=== PATIENT | male | born 1965 | race African-American/Black ===

== ENCOUNTER 2018-04-09 17:18 | Inpatient (IN) | payer MEDICARE, OTHER | END 2018-04-11 19:50 | disposition home or self-care (01) | LOC: TELE 04-10 06:43 → TELE-CENTR 04-10 20:30 → ER 17:18 | DX: I16.0 Hypertensive urgency (principal); G82.20 Paraplegia, unspecified; G35 Multiple sclerosis; G89.4 Chronic pain syndrome; M54.9 Dorsalgia, unspecified ==

== ENCOUNTER 2018-04-17 01:10 | Inpatient (IN) | payer MEDICARE, OTHER ==
[~2018-04-17] VITALS: Ht 182.9 cm; Wt 109.3 kg
[~2018-04-17 01:10] MED LIST: CAR3125T PO; CLO01T PO; HYDR25TA4 PO; LOSA-49 PO; METO-159 PO
[2018-04-17 04:02] LABS: Urine Bacteria NONE SEEN /hpf (None Seen); Urine Blood Negative /uL (Negative); Urine Specific Gravity 1.005 (1.001-1.035); Urine WBC 2 /hpf (0 - 3)
[2018-04-17] MEDS ORDERED: ASPirin 81 mg TAB PO ONE ×2 (08:30→10:45)
[2018-04-17] MEDS ORDERED: MORPHINE SULFATE 4 MG/ML SYR/VIAL IV ONE (08:30)
[2018-04-17] MEDS ORDERED: ONDANSETRON HCL 4 MG/2 ML VIAL IV ONE (08:30)
[2018-04-17 08:35] LABS: Basophils # (auto) 0.1 uL; Eosinophils # (auto) 0 uL; Hemoglobin 14.1 g/dL (13.5-17.5); Monocytes # (auto) 0.8 uL; Neutrophils # (auto) 6.2 uL; White Blood Cell 9.1 10^3/uL (4.4-10.8)
[2018-04-17 08:37] LABS: Basophils % (auto) 0.8 % (0.0-2.0); Eosinophils % (auto) 0.3 % (0.0-7.0); Hematocrit 43.5 % (41.0-53.0); Lymphocytes % (auto) 22.1 % (10.0-50.0); Mean Corpuscular Hemoglobin 26.8 pg (28.0-32.0); Mean Corpuscular Hgb Conc. 32.4 g/dL (32.0-36.0); Mean Corpuscular Volume 82.8 fL (80.0-100.0); Monocytes % (auto) 8.4 % (0.0-12.0); Neutrophils % (auto) 68.4 % (37.0-80.0); Platelet Count (auto) 332 10^3/uL (140-450); Red Blood Cells 5.26 10^6/uL (4.5-5.90); Red Cell Distribution Width 18.7 % (11.8-14.3)
[2018-04-17 08:51] LABS: Albumin 4.2 g/dL (3.4-5.0); Anion Gap 8 (5-15); Blood Urea Nitrogen 17 mg/dL (7-18); Calcium 9.2 mg/dL (8.5-10.1); Carbon Dioxide 25 mmol/L (21-32); Chloride 109 mmol/L (98-107); Glucose 107 mg/dL (74-106); Potassium 3.6 mmol/L (3.5-5.1); Sodium 142 mmol/L (136-145)
[2018-04-17 08:57] LABS: Alanine Aminotransferase 32 U/L (16-61); Alkaline Phosphatase 160 U/L (45-117); Aspartate Aminotransferase 23 U/L (15-37); BUN/Creatinine Ratio 16.2; Bilirubin, Total 0.4 mg/dL (0.2-1.0); GFR African American 94 mL/min; GFR Non-African American 78 mL/min; Total Protein 7.4 g/dL (6.4-8.2)
[2018-04-17] MEDS ORDERED: MORPHINE SULFATE 4 MG/ML SYR/VIAL IV PRN ×2 (10:15)
[2018-04-17] MEDS ORDERED: ACETAMINOPHEN 500 MG TAB PO PRN (10:15)
[2018-04-17] MEDS ORDERED: NITROGLYCERIN 0.4 MG SL TAB SL PRN (10:15)
[2018-04-17] MEDS ORDERED: HCTZ 25 MG TAB PO ONE (10:45)
[2018-04-17] MEDS ORDERED: LOSARTAN POTASSIUM 50 MG TAB PO ONE (10:45)
[2018-04-17] MEDS ORDERED: METOPROLOL TARTRATE 50 MG TAB PO ONE (10:45)
[2018-04-17 11:07] LABS: Alcohol, Urine < 3.0 mg/dL (0-5); Amphetamine Screen, Urine NEGATIVE (NEGATIVE); Barbiturate Scree,Urine NEGATIVE (NEGATIVE); Benzodiazephine Screen, Urine NEGATIVE (NEGATIVE); Cannabinoid Screen, Urine NEGATIVE (NEGATIVE); Cocaine Screen, Urine NEGATIVE (NEGATIVE); Opiate Scree,Urine NEGATIVE (NEGATIVE); Phencyclidine Screen, Urine NEGATIVE (NEGATIVE)
[2018-04-17] MEDS ORDERED: diphenhdrAMINE HCL 50 MG/1 ML VL IV ONE (12:15)
[2018-04-17] MEDS: SODIUM CHLORIDE 0.9% 1,000 ML IV SCH (12:24)
[2018-04-17] MEDS: HYDROmorphone HCL 2 MG/ML VL IV PRN ×3 (13:33→22:51)
[2018-04-17] MEDS: cloNIDine HCL 0.1 MG TAB PO SCH ×2 (13:50→21:17)
[2018-04-17] MEDS ORDERED: IOHEXOL 350 MG/ML 100ML IJ ONE (13:57)
[2018-04-17] MEDS: LORazepam 0.5 MG TAB PO PRN (16:03)
[2018-04-17] MEDS: HYDROcodone-ACET 5/325MG TAB PO PRN (16:03)
[2018-04-17] MEDS ORDERED: ENOXAPARIN SOD 100 MG/1 ML SYRINGE SC ONE (17:30)
[2018-04-17 18:00] VITALS: BP 156/108
--- NOTE | 2018-04-17 19:30 | NUR ---
Opening Shift Note Assumed care of patient, awake and alert. No S/S of distress/SOB or pain. Bed in lowest locked position, side rails up x2, call light within reach. Instructed on POC and to call for assist PRN, will continue to monitor for changes Q1hr and PRN.
[2018-04-17] MEDS: ATORVASTATIN 20 MG TAB PO SCH (21:16)
[2018-04-17] MEDS: METOPROLOL TARTRATE 50 MG TAB PO SCH (21:17)
--- NOTE | 2018-04-17 21:17 | NUR ---
Benadryl Patient reporting itching, requesting Benadryl. Benadryl 25mg offered as ordered, patient refusing to take oral medication, requesting IV Benadryl, will page cogeneration technician hospitalist.
[2018-04-17 22:00] VITALS: BP 161/105
--- NOTE | 2018-04-17 22:00 | NUR ---
Hospitalist Paged finished cloth examiner hospitalist paged regarding patient's request to switch from PO Benadryl to IV Benadryl, awaiting call back at this time.
--- NOTE | 2018-04-17 22:07 | NUR ---
Hospitalist Returned Page Darshan Osborne DOCENT COORDINATOR returned page at this time. Per DOCENT COORDINATOR, "we will keep Benadryl PO." RN verbalized understanding, will administer as ordered and continue to monitor patient.
[2018-04-17] MEDS: diphenhdrAMINE HCL 25 MG CAP PO PRN (22:43)
[2018-04-18] MEDS: TEMAZEPAM 15 MG CAP PO PRN ×2 (00:33→23:29)
[2018-04-18] MEDS: HYDROcodone-ACET 5/325MG TAB PO PRN (00:33)
[2018-04-18] MEDS: SODIUM CHLORIDE 0.9% 1,000 ML IV SCH (02:25)
[2018-04-18] MEDS: HYDROmorphone HCL 2 MG/ML VL IV PRN ×5 (03:11→21:08)
[2018-04-18] MEDS: cloNIDine HCL 0.1 MG TAB PO SCH ×4 (06:00→23:37)
--- NOTE | 2018-04-18 07:40 | NUR ---
End of Shift Endorsed care to dayshift RN. Patient shows no signs of distress at this time. Bed in lowest locked position, side rails up x2, and call light within reach.
--- NOTE | 2018-04-18 07:50 | NUR ---
PT RESTING IN BED, PT REPORTS BACK PAIN 8/10 FROM PREVIOUS SURGERY. BED IN LOWEST LOCKED POSITION AND SIDE RAILS UP X2. PT ENCOURAGED TO USE CALL LIGHT PRN, WILL CONTINUE TO MONITOR.
[2018-04-18 08:45] VITALS: BP 172/113
[2018-04-18] MEDS: diphenhdrAMINE HCL 25 MG CAP PO PRN (08:50)
[2018-04-18] MEDS: HCTZ 25 MG TAB PO SCH (09:09)
[2018-04-18] MEDS: METOPROLOL TARTRATE 50 MG TAB PO SCH ×2 (09:09→21:08)
[2018-04-18] MEDS: PANTOPRAZOLE 40 MG TAB PO SCH (09:10)
[2018-04-18] MEDS: LOSARTAN POTASSIUM 50 MG TAB PO SCH (09:11)
[2018-04-18] MEDS: NITROGLYCERIN 0.2MG/HR TOPICAL PATCH TD SCH (09:14)
[2018-04-18] MEDS: ENOXAPARIN SOD 100 MG/1 ML SYRINGE SC SCH ×2 (09:14→21:07)
--- NOTE | 2018-04-18 09:23 | NUR ---
METOPROLOL HELD, PT HEART RATE 58.
[2018-04-18] MEDS ORDERED: ASPirin 81 mg TAB PO SCH (10:00)
[2018-04-18] MEDS ORDERED: ENOXAPARIN SOD 40 MG/0.4 ML SYRINGE SC SCH (10:00)
--- NOTE | 2018-04-18 10:01 | NUR ---
SPIRAL RUNNER REPORTS PATIENT WANTS MORE PAIN MEDICATION. PRN DILAUDID ALREADY GIVEN. PT REFUSED BLOOD DRAW TWICE THIS MORNING. WILL CONTINUE TO MONITOR.
--- NOTE | 2018-04-18 10:37 | NUR ---
SPOKE WITH PATENT, PT REPORTS 8/10 BACK PAIN, PRN NORCO OFFERED TO PATIENT. PT REFUSED. PT REQUESTS HIGHER DOSE OF DILAUDID. WILL ASK .
[2018-04-18] MEDS ORDERED: cefTRIAXone 1GM/50ML D5W 50 ML IV ONE (12:15)
[2018-04-18] MEDS ORDERED: AZITHROMYCIN 500MG/ 250ML 250 ML IV ONE (12:15)
--- NOTE | 2018-04-18 12:31 | NUR ---
DR SULLIVAN SAW PATIENT AND DISCUSSED POC. NEW ORDERS: PO BENADRYL CHANGED TO IV. DIAUDID CHANGED FROM 0.5 MG TO 1 MG. DC B[place]. ANTIBIOTICS STARTED, AND CLONIDINE DOSE CHANGED. PT UPDATED AND VERBALIZED UNDERSTANDING. WILL CONTINUE TO MONITOR. Addendum: 04/18/18 at 1336 by CAIN WILSON RN informed pt bp 172/113 and new orders to dc fluids.
[2018-04-18 13:00] VITALS: BP 149/104
[2018-04-18 14:47] LABS: Cholesterol 196 mg/dL (< 200); Triglycerides 234 mg/dL (< 150)
[2018-04-18 14:48] LABS: HDL Cholesterol 44 mg/dL (40-59); LDL Cholesterol 125 mg/dL (< 100)
[2018-04-18] MEDS: diphenhdrAMINE HCL 50 MG/1 ML VL IV PRN ×2 (15:56→21:38)
[2018-04-18] MEDS: PROMETHAZINE HCL 25 MG/ML 1ML IV PRN ×2 (15:56→21:08)
[2018-04-18 17:00] VITALS: BP 137/87
--- NOTE | 2018-04-18 19:20 | NUR ---
Opening Shift Note Assumed care of patient, awake and alert x 4. No S/S of distress/SOB. Bed is in lowest position and locked. Call light within reach. Board updated. Tele box number matches monitor and leads are in correct placement. Wheelchair at bedside. Instructed on POC and to call for assist PRN, will continue to monitor for changes Q1hr and PRN.
[2018-04-18] MEDS: ATORVASTATIN 20 MG TAB PO SCH (21:08)
[2018-04-19] MEDS: PROMETHAZINE HCL 25 MG/ML 1ML IV PRN ×4 (01:14→14:11)
[2018-04-19] MEDS: HYDROmorphone HCL 2 MG/ML VL IV PRN ×6 (01:15→22:13)
[2018-04-19] MEDS: diphenhdrAMINE HCL 50 MG/1 ML VL IV PRN ×3 (03:45→18:24)
[2018-04-19] MEDS: HYDROcodone-ACET 5/325MG TAB PO PRN ×3 (03:46→21:13)
[2018-04-19 05:00] VITALS: BP 112/68
[2018-04-19] MEDS: cloNIDine HCL 0.1 MG TAB PO SCH ×3 (05:51→18:23)
[2018-04-19 09:00] VITALS: BP 117/73
[2018-04-19] MEDS: LOSARTAN POTASSIUM 50 MG TAB PO SCH (10:06)
[2018-04-19] MEDS: PANTOPRAZOLE 40 MG TAB PO SCH (10:07)
[2018-04-19] MEDS: METOPROLOL TARTRATE 50 MG TAB PO SCH ×2 (10:07→22:13)
[2018-04-19] MEDS: HCTZ 25 MG TAB PO SCH (10:07)
[2018-04-19] MEDS: AZITHROMYCIN 500MG/ 250ML 250 ML IV SCH (10:08)
[2018-04-19] MEDS: cefTRIAXone 1GM/50ML D5W 50 ML IV SCH (10:08)
[2018-04-19] MEDS: NITROGLYCERIN 0.2MG/HR TOPICAL PATCH TD SCH (10:08)
[2018-04-19 13:00] VITALS: BP 143/96
[2018-04-19] MEDS: LORazepam 0.5 MG TAB PO PRN (14:12)
--- NOTE | 2018-04-19 15:05 | NUR ---
Opening Note Assumed care of patient. Patient is awake, alert and oriented x4. No signs or symptoms of distress noted at this time. Reviewed plan of care with patient, patient verbalized understanding. Bed in low and locked position, call light within reach. Will continue to monitor Q1 hour and PRN.
[2018-04-19 17:00] VITALS: BP 122/78
[2018-04-19 22:00] VITALS: BP 120/81
[2018-04-19] MEDS: ATORVASTATIN 20 MG TAB PO SCH (22:13)
[2018-04-19] MEDS: TEMAZEPAM 15 MG CAP PO PRN (22:50)
[2018-04-20] MEDS: cloNIDine HCL 0.1 MG TAB PO SCH ×4 (00:26→18:00)
[2018-04-20] MEDS: HYDROmorphone HCL 2 MG/ML VL IV PRN ×5 (02:30→19:35)
[2018-04-20] MEDS: diphenhdrAMINE HCL 50 MG/1 ML VL IV PRN ×4 (02:31→21:20)
[2018-04-20 05:16] VITALS: BP 114/63
--- NOTE | 2018-04-20 05:34 | NUR ---
Patient refusing morning lab draw. Educated patient on importance of labs prior to his heart cath procedure today. Patient continues to refuse. Will continue to monitor Q1 hour and PRN.
--- NOTE | 2018-04-20 07:00 | NUR ---
Patient allowed labs to be drawn
--- NOTE | 2018-04-20 07:32 | NUR ---
Closing Note Report given to day shift RN. Patient is awake, alert and oriented x4. No signs or symptoms of distress noted at this time. at bedside.
[2018-04-20 07:34] LABS: INR 0.93 (0.9-1.15); Partial Thromboplastin Time 20.8 sec (23.78-33.04)
--- NOTE | 2018-04-20 07:35 | NUR ---
Opening Shift Note Received report from Summer RN. Assumed care of patient, awake and alert. No S/S of distress/SOB. Reported generalized pain. Emphasized NPO due to LHC today and patient is aware of it. Noted own wheelchair at bedside. Instructed on POC and to call for assist PRN, will continue to monitor for changes Q1hr and PRN.
[2018-04-20 08:00] VITALS: BP 118/77
[2018-04-20 08:11] LABS: Basophils # (auto) 0 uL; Basophils % (auto) 0.4 % (0.0-2.0); Hemoglobin 12.6 g/dL (13.5-17.5); Neutrophils # (auto) 2.9 uL; Nucleated Red Blood Cells % 0.1 %
[2018-04-20 08:13] LABS: Eosinophils # (auto) 0.2 uL; Eosinophils % (auto) 2.6 % (0.0-7.0); Hematocrit 39.2 % (41.0-53.0); Lymphocytes # (auto) 2.3 uL; Lymphocytes % (auto) 38.6 % (10.0-50.0); Mean Corpuscular Hemoglobin 26.3 pg (28.0-32.0); Mean Corpuscular Hgb Conc. 32.2 g/dL (32.0-36.0); Mean Corpuscular Volume 81.8 fL (80.0-100.0); Monocytes # (auto) 0.7 uL; Neutrophils % (auto) 47.4 % (37.0-80.0); Platelet Count (auto) 245 10^3/uL (140-450); Red Blood Cells 4.79 10^6/uL (4.5-5.90); Red Cell Distribution Width 18.4 % (11.8-14.3)
[2018-04-20 08:22] LABS: Albumin 3.5 g/dL (3.4-5.0); Calcium 8.6 mg/dL (8.5-10.1); Potassium 3.9 mmol/L (3.5-5.1)
[2018-04-20 08:25] LABS: BUN/Creatinine Ratio 16.2; Bilirubin, Total 0.3 mg/dL (0.2-1.0); Total Protein 6.2 g/dL (6.4-8.2)
[2018-04-20 08:30] VITALS: BP 118/77
--- NOTE | 2018-04-20 08:35 | NUR ---
Dr. Alex Riley at bedside.
[2018-04-20] MEDS: HYDROcodone-ACET 5/325MG TAB PO PRN ×2 (09:06→21:20)
[2018-04-20] MEDS: METOPROLOL TARTRATE 50 MG TAB PO SCH ×2 (09:19→22:40)
[2018-04-20] MEDS: HCTZ 25 MG TAB PO SCH (09:21)
[2018-04-20] MEDS: LOSARTAN POTASSIUM 50 MG TAB PO SCH (09:21)
[2018-04-20] MEDS: cefTRIAXone 1GM/50ML D5W 50 ML IV SCH (09:22)
[2018-04-20] MEDS: ENOXAPARIN SOD 100 MG/1 ML SYRINGE SC SCH ×2 (09:22→22:41)
[2018-04-20] MEDS: PANTOPRAZOLE 40 MG TAB PO SCH (09:22)
[2018-04-20] MEDS: NITROGLYCERIN 0.2MG/HR TOPICAL PATCH TD SCH (09:23)
--- NOTE | 2018-04-20 10:00 | NUR ---
GAVE REPORT TO TEX TOLEDO TO CONTINUE PATIENT'S CARE.
--- NOTE | 2018-04-20 10:05 | NUR ---
REPORT RECEIVED Patient awake and alert sitting up in bed with family at bedside. Patient is on room air with even and unlabored respirations. No S/S of distress/SOB at this time. Will continue to monitor changes q1hr and PRN.
[2018-04-20] MEDS: AZITHROMYCIN 500MG/ 250ML 250 ML IV SCH (10:47)
--- NOTE | 2018-04-20 11:25 | NUR ---
IV insertion IV access obtained, via clean sterile technique by inserting [22] gauge catheter at [right shoulder] after [1] attempt(s). IV secured properly. No trauma to site. Patient tolerated well.
--- NOTE | 2018-04-20 11:45 | NUR ---
PATIENT TRANSPORTED OFF UNIT TO INDUSTRIAL MACHINE ASSEMBLER VIA BED. PATIENT ALERT AND AWAKE WITH EVEN AND UNLABORED RESPIRATIONS. NO S/S OF DISTRESS/SOB AT TIME OF TRANSFER. HAND OFF REPORT GIVEN TO INDUSTRIAL MACHINE ASSEMBLER.
--- NOTE | 2018-04-20 11:54 | NUR ---
Nutrition Assessment Notes please see attached link for complete assessment Est. Needs based on ABW (95 kg): 9286-1643 kcal (23-25 kcal/kgBW), 95-104 gms pro (1.0-1.1 gms/kgBW). Will continue to monitor pertinent labs and reassess nutrient need prn Addendum: 04/20/18 at [address] Amended: Links added.
[2018-04-20] MEDS ORDERED: LIDOCAINE 2%HCL (LOCAL ANESTH.) INJ 20ML MDV ONE (11:55)
[2018-04-20] MEDS ORDERED: IOHEXOL 350 MG/ML 100ML IJ ONE (11:55)
[2018-04-20] MEDS ORDERED: MIDAZOLAM HCL 1MG/1ML-2 ML VIAL ONE (12:41)
[2018-04-20] MEDS ORDERED: fentaNYL CITRATE 100 MCG/2 ML VL ONE ×2 (12:41→13:10)
[2018-04-20] MEDS ORDERED: ANGIOMAX 250 MG VIAL IV ONE (12:41)
[2018-04-20] MEDS ORDERED: SODIUM CHL 0.9% 0 ML ONE (12:41)
[2018-04-20] MEDS ORDERED: VERAPAMIL 2.5MG/ML INJ 2ML VIAL IV ONE (12:45)
[2018-04-20 13:00] VITALS: BP 132/63
--- NOTE | 2018-04-20 13:40 | NUR ---
PATIENT RETURNED FROM RETURNED CASE INSPECTOR PATIENT RETURNED FROM RETURNED CASE INSPECTOR. PATIENT HAS TR BAND TO RIGHT WRIST. INCISION LOOKS CLEAN, DRY AND INTACT. PATIENT ALERT AND AWAKE WITH EVEN AND UNLABORED RESPIRATIONS. WILL MONITOR INCISION SITE AND REMOVE AIR PER PROTOCOL. WILL CONTINUE TO MONITOR Q1H AND PRN.
--- NOTE | 2018-04-20 14:15 | NUR ---
AIR REMOVED FROM TR BAND 2 ML'S OF AIR REMOVED FROM TR BAND TO RIGHT WRIST PER PROTOCOL. NO BLEEDING NOTED FROM SITE. WILL CONTINUE TO MONITOR.
--- NOTE | 2018-04-20 14:40 | NUR ---
AIR REMOVED FROM TR BAND ANOTHER 2 ML'S OF AIR REMOVED FROM TR BAND. NO BLEEDING NOTED FROM SITE. PATIENT TOLERATED WELL. WILL CONTINUE TO MONITOR.
--- NOTE | 2018-04-20 15:05 | NUR ---
AIR REMOVED FROM TR BAND 2 ML'S OF AIR REMOVED FROM TR BAND TO RIGHT WRIST PER PROTOCOL. NO BLEEDING NOTED FROM SITE. PATIENT TOLERATED WELL.WILL CONTINUE TO MONITOR.
--- NOTE | 2018-04-20 16:00 | NUR ---
AIR REMOVED FROM TR BAND ANOTHER 2 ML'S OF AIR REMOVED FROM TR BAND TO RIGHT WRIST PER PROTOCOL. NO BLEEDING NOTED FROM SITE. PATIENT TOLERATED WELL.WILL CONTINUE TO MONITOR.
--- NOTE | 2018-04-20 16:30 | NUR ---
AIR REMOVED FROM TR BAND LAST 2 ML'S OF AIR REMOVED FROM TR BAND TO RIGHT WRIST PER PROTOCOL. NO BLEEDING NOTED FROM SITE. PATIENT TOLERATED WELL. WILL REMOVE TR BAND PER PROTOCOL. WILL CONTINUE TO MONITOR Q1H AND PRN.
[2018-04-20 16:53] VITALS: BP 103/58
--- NOTE | 2018-04-20 17:00 | NUR ---
TR BAND REMOVED TR BAND REMOVED PER PROTOCOL. NO BLEEDING, REDNESS, OR EDEMA TO SITE NOTED. SITE COVERED WITH GAUZE AND TEGADERM. WILL CONTINUE TO MONITOR Q1H AND PRN.
--- NOTE | 2018-04-20 17:25 | NUR ---
Closing Note Patient laying in bed quietly, alert and orientated. No S/S of distress/SOB noted at this time. Report given to TAYLOR Ro RN. Care endorsed.
[2018-04-20] MEDS: LORazepam 0.5 MG TAB PO PRN (17:32)
--- NOTE | 2018-04-20 19:30 | NUR ---
Opening Shift Note Assumed care of patient, awake and alert. No S/S of distress/SOB or pain. Instructed on POC and to call for assist PRN, will continue to monitor for changes Q1hr and PRN.
[2018-04-20 22:00] VITALS: BP 119/77
[2018-04-20] MEDS: ATORVASTATIN 20 MG TAB PO SCH (22:40)
[2018-04-21] MEDS: HYDROmorphone HCL 2 MG/ML VL IV PRN ×6 (00:19→21:37)
[2018-04-21] MEDS: TEMAZEPAM 15 MG CAP PO PRN ×2 (00:27→23:40)
[2018-04-21] MEDS: diphenhdrAMINE HCL 50 MG/1 ML VL IV PRN ×4 (03:00→21:37)
[2018-04-21] MEDS: HYDROcodone-ACET 5/325MG TAB PO PRN ×4 (03:00→18:43)
[2018-04-21 04:00] VITALS: BP 128/88
[2018-04-21] MEDS: cloNIDine HCL 0.1 MG TAB PO SCH ×4 (06:29→17:34)
--- NOTE | 2018-04-21 07:30 | NUR ---
OPENING NOTE OBSERVED PT SITTING UP IN BED, TALKING ON TELEPHONE. NO SOB/DISTRESS NOTED. CALL LIGHT WITHIN REACH. FALL PRECAUTIONS IN PLACE. WILL CONTINUE TO MONITOR Q1H AND PRN. CONTINUE PT CARE.
--- NOTE | 2018-04-21 08:11 | NUR ---
Home Health order faxed to [facility].
[2018-04-21 09:00] VITALS: BP 121/84
--- NOTE | 2018-04-21 09:05 | NUR ---
AT BEDSIDE DR. SULLIVAN AT BEDSIDE DISCUSSING POC WITH PT. MD TO PLACE ORDER FOR PT. REQUESTING DR. BORGES BE CALLED TO INFORM OF TENTATIVE DC FOR 04/22/18. MD STATING HE PLANS TO DC PATIENT ON ELIQUIS, BUT WANTS TO KNOW WHETHER OR NOT PATIENT NEEDS TO BE DISCHARGED ON ASPIRIN AND PLAVIX WELL. WILL CONTACT DR. BORGES.
[2018-04-21] MEDS: LOSARTAN POTASSIUM 50 MG TAB PO SCH (09:24)
[2018-04-21] MEDS: METOPROLOL TARTRATE 50 MG TAB PO SCH ×2 (09:24→22:00)
[2018-04-21] MEDS: PANTOPRAZOLE 40 MG TAB PO SCH (09:25)
[2018-04-21] MEDS: HCTZ 25 MG TAB PO SCH (09:36)
[2018-04-21] MEDS: AZITHROMYCIN 500MG/ 250ML 250 ML IV SCH (09:38)
[2018-04-21] MEDS: cefTRIAXone 1GM/50ML D5W 50 ML IV SCH (09:38)
[2018-04-21] MEDS: NITROGLYCERIN 0.2MG/HR TOPICAL PATCH TD SCH (09:40)
[2018-04-21] MEDS: ENOXAPARIN SOD 100 MG/1 ML SYRINGE SC SCH ×2 (09:41→21:37)
--- NOTE | 2018-04-21 10:45 | NUR ---
PT SPOKE TO SEN BEARDEN, REGARDING PENDING PT. SULEIMAN STATING HE WILL INFORM PTLAURY OF PENDING EVAL.
--- NOTE | 2018-04-21 10:49 | NUR ---
SPOKE TO MD SPOKE TO DR. BORGES REGARDING DC RECOMMENDATIONS. PER DR. BORGES, OK FOR PATIENT TO BE DC'D ON ELIQUIS. PT DOES NOT NEED TO B DISCHARGED ON ASPIRIN AND PLAVIX. NO FURTHER ORDERS AT THIS TIE.
--- NOTE | 2018-04-21 11:12 | NUR ---
DOUBLE NEEDLE OPERATOR LOCKSTITCH SPOKE TO AVE, MIKE, REGARDING POSSIBLE DC FOR 04/21/18 OR 04/22/[address] ORDER. AVE STATING HH ALREADY ARRANGED WITH [facility].
--- NOTE | 2018-04-21 12:00 | NUR ---
SPOKE TO MD SPOKE TO DR. SULLIVAN REGARDING PATIENTS CONTINUED C/O PAIN. INITIALLY, ORDERS RECEIVED FOR 30 MG TORADOL. PATIENT ALLERGY REPORTED. INFORMED DR. SULLIVAN. ORDERS RECEIVED FOR ACETAMINOPHEN 650 MG PO Q6H PRN. ORDER READ BACK. INFORMED PATIENT OF MD ORDER, PT REFUSING AT THIS TIME, REQUESTING PRN NORCO INSTEAD. WILL MEDICATE ACCORDING TO MD ORDER.
[2018-04-21] MEDS: LORazepam 0.5 MG TAB PO PRN ×2 (12:08→18:43)
[2018-04-21 13:00] VITALS: BP 134/80
[2018-04-21] MEDS ORDERED: ACETAMINOPHEN 325 MG TAB PO PRN (13:00)
--- NOTE | 2018-04-21 14:30 | NUR ---
PHYSICAL THERAPY LAURY, PT, AT BEDSIDE.
[2018-04-21 17:00] VITALS: BP 105/73
--- NOTE | 2018-04-21 17:14 | NUR ---
assessment Patient is a 53 year old male who is alert and oriented. Prior to admission patient lived home with family and functioned with assistance. Per patient he will return home to his prior living arrangements post discharge and family will transport him home. Patient informed me he has a wheelchair for home use. Patient informed me he had an elective back surgery last year and has no walked since. Patient informed me he is on service with [facility]. Patient informed me he has good family support. Patient would benefit from a home health resumption order on discharge. I informed patient he has a home health order and patient has signed choice letter for [facility] to resume. Mag counseling case manager is satisfying order. I informed patient he has a right to speak to a social science teacher regarding all care. I informed patient he has a right to participate in any and all discharge planning. Patient is aware of visiting hours on the hospital floor. I informed patient he has a right to privacy. Patient does not have a POA and advanced directive. I have offered patient information on POA and advanced directives. I informed the patient the advantages and benefits of having an Advanced Directive. Patient verbalized understanding and agreed to discharge plan. Addendum: 04/22/18 at 1718 by Marie MCKEON Amended: Links added.
--- NOTE | 2018-04-21 19:07 | NUR ---
PT CARE ENDORSED PT CARE ENDORSED TO DEBORAH TOLEDO.
--- NOTE | 2018-04-21 19:30 | NUR ---
Opening Shift Note Assumed care of patient, awake and alert. No S/S of distress/SOB. Instructed on POC and to call for assist PRN, will continue to monitor for changes Q1hr and PRN.
[2018-04-21] MEDS: ATORVASTATIN 20 MG TAB PO SCH (21:37)
[2018-04-21 22:00] VITALS: BP 106/62
[2018-04-22] MEDS: HYDROmorphone HCL 2 MG/ML VL IV PRN ×3 (02:15→11:02)
[2018-04-22] MEDS: diphenhdrAMINE HCL 50 MG/1 ML VL IV PRN ×2 (03:35→11:02)
[2018-04-22 05:00] VITALS: BP 127/78
[2018-04-22] MEDS: cloNIDine HCL 0.1 MG TAB PO SCH ×3 (05:37→12:00)
[2018-04-22] MEDS: HYDROcodone-ACET 5/325MG TAB PO PRN (05:38)
--- NOTE | 2018-04-22 07:25 | NUR ---
Opening Shift Note Assumed care of patient, awake and alert. No S/S of distress/SOB or pain noted at this time, no facial grimacing or moaning noted. assessed lower extremities, sensation intact. Instructed on POC and to call for assist PRN, call light within reach, bed alarm on, and side rails up for safety, pt able to demonstrate how to use call light. will continue to monitor for changes Q1hr and PRN.
--- NOTE | 2018-04-22 07:30 | NUR ---
SKIN ASSESSED SACRUM, RIGHT BUTTOCKS SCAR NOTED, SITE PINK, NO OPEN AREAS, PT INSTRUCTED TO TURN Q2HR, PT VERBALIZED UNDERSTANDING, CONT CARE
[2018-04-22 08:00] VITALS: BP 102/71
[2018-04-22 09:00] VITALS: BP 102/71
[2018-04-22] MEDS: ENOXAPARIN SOD 100 MG/1 ML SYRINGE SC SCH (09:40)
[2018-04-22] MEDS: AZITHROMYCIN 500MG/ 250ML 250 ML IV SCH (09:40)
[2018-04-22] MEDS: cefTRIAXone 1GM/50ML D5W 50 ML IV SCH (09:40)
[2018-04-22] MEDS: HCTZ 25 MG TAB PO SCH (09:41)
[2018-04-22] MEDS: PANTOPRAZOLE 40 MG TAB PO SCH (09:41)
[2018-04-22] MEDS: NITROGLYCERIN 0.2MG/HR TOPICAL PATCH TD SCH (09:41)
[2018-04-22] MEDS: LOSARTAN POTASSIUM 50 MG TAB PO SCH (09:42)
[2018-04-22] MEDS: METOPROLOL TARTRATE 50 MG TAB PO SCH (09:43)
--- NOTE | 2018-04-22 09:50 | NUR ---
MD DR SULLIVAN AT BEDSIDE, DISCUSSING POC INCLUDING DC, CONT CARE
[2018-04-22 12:09] VITALS: BP 102/71
--- NOTE | 2018-04-22 12:30 | NUR ---
PT REFUSED PHYSICAL THERAPY
--- NOTE | 2018-04-22 13:30 | NUR ---
DISCHARGE Discharge instructions given as ordered. Encourage to follow up with PMD as instructed. Unable to make appointment, insurance out of the area, however contact info provided for Dionne Jimenez to assist with establishing local provider, as well as well as clinic voucher, per states " I dont need that I have insurance". All questions and concerns addressed. Patient verbalized understanding. Medication reconciliation form completed and copy given to patient. IV removed with catheter intact, pressure dressing applied. Prescriptions delivered to bedside by [facility]. [facility], accompanied by staff and family member. Patient waiting for Uber. No distress noted at time of departure.
== END 2018-04-22 13:30 | disposition home health service (06) | DRG 191 ==
LOC: EDBD 01:10 → ER 01:16 → TELE 10:17 → TELE-CENTR 16:57
PROVIDERS: ADMIT Internal Medicine; ATTEND Family Medicine
PROC: 4A023N7 Measurement of Cardiac Sampling and Pressure, Left Heart, Percutaneous Approach (ICD-10-PCS; principal; 2018-04-20)
PROC: B2111ZZ Fluoroscopy of Multiple Coronary Arteries using Low Osmolar Contrast (ICD-10-PCS; 2018-04-20)
PROC: B2151ZZ Fluoroscopy of Left Heart using Low Osmolar Contrast (ICD-10-PCS; 2018-04-20)
DX: I25.10 Atherosclerotic heart disease of native coronary artery without angina pectoris (principal); J18.1 Lobar pneumonia, unspecified organism; I11.0 Hypertensive heart disease with heart failure; I50.9 Heart failure, unspecified; G35 Multiple sclerosis; G83.9 Paralytic syndrome, unspecified; F41.9 Anxiety disorder, unspecified; I10 Essential (primary) hypertension; Z82.49 Family history of ischemic heart disease and other diseases of the circulatory system; Z99.3 Dependence on wheelchair; J98.11 Atelectasis; N39.0 Urinary tract infection, site not specified; R79.1 Abnormal coagulation profile; M54.5 Low back pain; G89.29 Other chronic pain; E78.00 Pure hypercholesterolemia, unspecified; I25.2 Old myocardial infarction; Z86.711 Personal history of pulmonary embolism; Z79.899 Other long term (current) drug therapy; Z79.2 Long term (current) use of antibiotics
CPT/HCPCS: 36415; 71046; 71275; 80053; 80061; 80307; 81001; 82550; 83880; 84443; 84484; 85025; 85379; 85610; 85730; 86141; 86850; 86900; 86901; 87081; 93005; 93306; 93970; 96361; 96365; 96367; 96375; 97163; 99152; A6257; G0378; J0696; J2250; J2405

== ENCOUNTER 2018-05-01 20:16 | Emergency (ER) | payer MEDICARE, OTHER ==
[~2018-05-01] VITALS: Ht 175.3 cm; Wt 99.8 kg
[2018-05-01] MEDS ORDERED: cloNIDine HCL 0.1 MG TAB PO ONE (23:45)
[2018-05-02 01:29] LABS: Basophils # (auto) 0.1 uL; Eosinophils # (auto) 0.2 uL; Eosinophils % (auto) 3.1 % (0.0-7.0); Hemoglobin 13.1 g/dL (13.5-17.5); Lymphocytes # (auto) 1.9 uL; Lymphocytes % (auto) 33.6 % (10.0-50.0); Mean Corpuscular Hemoglobin 27.1 pg (28.0-32.0); Mean Corpuscular Hgb Conc. 32.9 g/dL (32.0-36.0); Mean Corpuscular Volume 82.4 fL (80.0-100.0); Monocytes # (auto) 0.5 uL; Monocytes % (auto) 8.8 % (0.0-12.0); Neutrophils % (auto) 53.5 % (37.0-80.0); Nucleated Red Blood Cells % 0.1 %; Platelet Count (auto) 230 10^3/uL (140-450); Red Blood Cells 4.85 10^6/uL (4.5-5.90); Red Cell Distribution Width 18.2 % (11.8-14.3); White Blood Cell 5.5 10^3/uL (4.4-10.8)
[2018-05-02 01:48] LABS: Alanine Aminotransferase 35 U/L (16-61); Albumin 3.7 g/dL (3.4-5.0); Anion Gap 7 (5-15); Aspartate Aminotransferase 20 U/L (15-37); BUN/Creatinine Ratio 13.5; Blood Urea Nitrogen 17 mg/dL (7-18); Calcium 9.1 mg/dL (8.5-10.1); Carbon Dioxide 29 mmol/L (21-32); Chloride 106 mmol/L (98-107); GFR African American 76 mL/min; GFR Non-African American 63 mL/min; Glucose 105 mg/dL (74-106); INR 0.93 (0.9-1.15); Magnesium 2.3 mg/dL (1.6-2.6); Partial Thromboplastin Time 27.4 sec (23.78-33.04); Potassium 4.1 mmol/L (3.5-5.1); Sodium 142 mmol/L (136-145)
[2018-05-02 01:53] LABS: Alkaline Phosphatase 155 U/L (45-117); Bilirubin, Total 0.2 mg/dL (0.2-1.0); Total Protein 6.6 g/dL (6.4-8.2)
[2018-05-02] MEDS ORDERED: diphenhdrAMINE HCL 50 MG/1 ML VL IV PRN (02:00)
[2018-05-02] MEDS ORDERED: MORPHINE SULFATE 4 MG/ML SYR/VIAL IV ONE (02:00)
[2018-05-02] MEDS ORDERED: ONDANSETRON HCL 4 MG/2 ML VIAL IV ONE (02:00)
[2018-05-02 03:52] VITALS: BP 139/81
== END 2018-05-02 05:32 | disposition home or self-care (01) ==
LOC: EDBD 20:16 → ER 20:20
DX: R07.89 Other chest pain (principal); G35 Multiple sclerosis; E78.5 Hyperlipidemia, unspecified; I10 Essential (primary) hypertension; I25.2 Old myocardial infarction; F12.90 Cannabis use, unspecified, uncomplicated; Z88.8 Allergy status to other drugs, medicaments and biological substances; Z86.711 Personal history of pulmonary embolism; Z79.899 Other long term (current) drug therapy
CPT/HCPCS: 36415; 71045; 72131; 80053; 83735; 83880; 84443; 84484; 85025; 85379; 85610; 85730; 93005; 94761; 96374; 96375; 99284; J2270; J2405

== ENCOUNTER 2018-10-29 18:28 | Emergency (ER) | payer MEDICARE, MEDICAID ==
[~2018-10-29] VITALS: Ht 188 cm; Wt 113.4 kg
[~2018-10-29 18:28] MED LIST changes: +LOSA-39 PO; -LOSA-49 PO
[2018-10-29 20:32] LABS: Basophils # (auto) 0.1 uL; Eosinophils # (auto) 0.1 uL; Mean Corpuscular Hgb Conc. 31.5 g/dL (32.0-36.0); Monocytes # (auto) 0.5 uL; Neutrophils # (auto) 2.6 uL
[2018-10-29 20:34] LABS: Eosinophils % (auto) 2.4 % (0.0-7.0); Hematocrit 35.8 % (41.0-53.0); Hemoglobin 11.3 g/dL (13.5-17.5); Lymphocytes # (auto) 1.7 uL; Lymphocytes % (auto) 33.8 % (10.0-50.0); Mean Corpuscular Hemoglobin 24.3 pg (28.0-32.0); Mean Corpuscular Volume 77.2 fL (80.0-100.0); Neutrophils % (auto) 52.8 % (37.0-80.0); Platelet Count (auto) 246 10^3/uL (140-450); Red Blood Cells 4.64 10^6/uL (4.5-5.90); Red Cell Distribution Width 17.3 % (11.8-14.3)
[2018-10-29 20:35] LABS: INR 0.95 (0.9-1.15); Partial Thromboplastin Time 27.2 sec (23.64-32.05)
[2018-10-29 20:39] LABS: Albumin 3.7 g/dL (3.4-5.0); Anion Gap 6 (5-15); Blood Urea Nitrogen 21 mg/dL (7-18); Calcium 8.8 mg/dL (8.5-10.1); Carbon Dioxide 27 mmol/L (21-32); Chloride 111 mmol/L (98-107); Glucose 110 mg/dL (74-106); Potassium 4.4 mmol/L (3.5-5.1); Sodium 144 mmol/L (136-145)
[2018-10-29 20:51] LABS: Alanine Aminotransferase 26 U/L (16-61); Alkaline Phosphatase 209 U/L (45-117); Aspartate Aminotransferase 18 U/L (15-37); BUN/Creatinine Ratio 19.8; Bilirubin, Total 0.2 mg/dL (0.2-1.0); GFR African American 93 mL/min; GFR Non-African American 77 mL/min; Total Protein 6.5 g/dL (6.4-8.2)
[2018-10-30] MEDS ORDERED: cloNIDine HCL 0.1 MG TAB PO ONE (01:45)
[2018-10-30] MEDS ORDERED: ASPirin 81 mg TAB PO ONE (01:45)
[2018-10-30] MEDS ORDERED: MORPHINE SULFATE 4 MG/ML SYR/VIAL IV ONE (04:00)
[2018-10-30] MEDS ORDERED: ONDANSETRON HCL 4 MG/2 ML VIAL IV ONE (04:00)
[2018-10-30 04:40] VITALS: BP 161/87
== END 2018-10-30 06:12 | disposition home or self-care (01) ==
LOC: EDBD 18:28 → ER 18:31
DX: R51 Headache (principal); R07.89 Other chest pain; R41.0 Disorientation, unspecified; I10 Essential (primary) hypertension; E11.9 Type 2 diabetes mellitus without complications; E78.5 Hyperlipidemia, unspecified; I25.2 Old myocardial infarction; Z88.8 Allergy status to other drugs, medicaments and biological substances
CPT/HCPCS: 36415; 70450; 71045; 80053; 84484; 85025; 85610; 85730; 93005; 96374; 96375; 99284; J2270; J2405

== ENCOUNTER 2020-06-27 13:00 | Emergency (ER) | payer MEDICARE, MEDICAID ==
[~2020-06-27] VITALS: Ht 182.9 cm; Wt 108.9 kg
[2020-06-27] MEDS ORDERED: ONDANSETRON HCL 4 MG/2 ML VIAL IV ONE (13:15)
[2020-06-27] MEDS ORDERED: HYDROmorphone HCL 2 MG/ML VL IV ONE (13:15)
[2020-06-27] MEDS ORDERED: MORPHINE SULFATE 4 MG/ML SYR/VIAL IV ONE (13:15)
[2020-06-27] MEDS ORDERED: diphenhdrAMINE HCL 50 MG/1 ML VL ONE (13:58)
[2020-06-27] MEDS ORDERED: diphenhdrAMINE HCL 50 MG/1 ML VL IV ONE (14:30)
[2020-06-27 14:35] LABS: Basophils # (auto) 0 10 ^3/uL (0-0.2); Basophils % (auto) 0.4 % (0.0-2.0); Eosinophils # (auto) 0 10 ^3/uL (0-0.8); Eosinophils % (auto) 0.1 % (0.0-7.0); Hematocrit 42.6 % (41.0-53.0); Hemoglobin 14.3 g/dL (13.5-17.5); Lymphocytes % (auto) 10.3 % (10.0-50.0); Mean Corpuscular Hemoglobin 30.7 pg (28.0-32.0); Mean Corpuscular Hgb Conc. 33.7 g/dL (32.0-36.0); Mean Corpuscular Volume 91.2 fL (80.0-100.0); Monocytes # (auto) 0.4 10 ^3/uL (0-1.3); Monocytes % (auto) 4.2 % (0.0-12.0); Neutrophils # (auto) 8.1 10 ^3/uL (1.6-8.6); Nucleated Red Blood Cells % 0.1 %; Platelet Count (auto) 177 10^3/uL (140-450); Red Blood Cells 4.67 10^6/uL (4.5-5.90); Red Cell Distribution Width 16.3 % (11.8-14.3); White Blood Cell 9.6 10^3/uL (4.4-10.8)
[2020-06-27 14:40] LABS: Albumin 3.3 g/dL (3.4-5.0); Anion Gap 6 (5-15); Blood Urea Nitrogen 24 mg/dL (7-18); Carbon Dioxide 24 mmol/L (21-32); Chloride 109 mmol/L (98-107); Glucose 197 mg/dL (74-106); Potassium 4.4 mmol/L (3.5-5.1); Sodium 139 mmol/L (136-145)
[2020-06-27 14:47] LABS: Alanine Aminotransferase 52 U/L (16-61); Alkaline Phosphatase 126 U/L (45-117); Aspartate Aminotransferase 24 U/L (15-37); BUN/Creatinine Ratio 19.5; Bilirubin, Total 0.3 mg/dL (0.2-1.0); GFR African American 78 mL/min; GFR Non-African American 64 mL/min; Total Protein 7.2 g/dL (6.4-8.2)
[2020-06-27 16:18] LABS: Urine Bacteria NONE SEEN /hpf (None Seen); Urine Blood 1+ /uL (Negative); Urine Specific Gravity 1.024 (1.001-1.035); Urine WBC 339 /hpf (0 - 3); Urine WBC Clumps PRESENT /hpf (None Seen)
[2020-06-27 16:20] VITALS: BP 151/106
[2020-06-27] MEDS ORDERED: cefTRIAXone 1GM/50ML D5W 50 ML IV ONE ×2 (16:58→17:00)
== END 2020-06-27 17:21 | disposition home or self-care (01) ==
LOC: ER 13:00 → EDBD 13:00 → EDSEX 13:00 → ER 17:21
DX: I10 Essential (primary) hypertension (principal); N39.0 Urinary tract infection, site not specified; G89.29 Other chronic pain; G35 Multiple sclerosis; M54.5 Low back pain; F41.9 Anxiety disorder, unspecified; I25.2 Old myocardial infarction; Z86.73 Personal history of transient ischemic attack (TIA), and cerebral infarction without residual deficits; Z79.899 Other long term (current) drug therapy; Z88.8 Allergy status to other drugs, medicaments and biological substances
CPT/HCPCS: 36415; 71045; 72131; 80053; 81001; 84484; 85025; 93005; 96365; 96375; 99285; J0696; J1170; J1200; J2270; J2405

== ENCOUNTER 2020-07-09 08:28 | Emergency (ER) | payer MEDICARE, MEDICAID ==
[~2020-07-09] VITALS: Ht 182.9 cm; Wt 101.2 kg
[2020-07-09] MEDS ORDERED: cloNIDine HCL 0.1 MG TAB ONE (08:30)
[2020-07-09 09:03] VITALS: BP 152/111
[2020-07-09] MEDS ORDERED: METOCLOPRAMIDE HCL 5MG/ml INJ 2ml VIAL IV ONE (10:15)
[2020-07-09] MEDS ORDERED: MORPHINE SULFATE 4 MG/ML SYR/VIAL IV ONE (10:15)
[2020-07-09] MEDS ORDERED: LABETALOL HCL 5 MG/ML 4ML SYRINGE IV ONE (10:15)
[2020-07-09] MEDS ORDERED: SODIUM CHLORIDE 0.9% 1,000 ML IV ONE (10:15)
[2020-07-09] MEDS ORDERED: diphenhdrAMINE HCL 50 MG/1 ML VL IV ONE (10:30)
[2020-07-09 10:55] LABS: Urine Bacteria NONE SEEN /hpf (None Seen); Urine Blood Negative /uL (Negative); Urine Specific Gravity 1.025 (1.001-1.035); Urine WBC 2 /hpf (0 - 3)
[2020-07-09 11:25] LABS: Basophils # (auto) 0 10 ^3/uL (0-0.2); Basophils % (auto) 1.1 % (0.0-2.0); Eosinophils # (auto) 0.1 10 ^3/uL (0-0.8); Eosinophils % (auto) 1.7 % (0.0-7.0); Hematocrit 35.5 % (41.0-53.0); Hemoglobin 12.2 g/dL (13.5-17.5); Lymphocytes # (auto) 1.5 10 ^3/uL (0.4-5.4); Mean Corpuscular Hemoglobin 31.3 pg (28.0-32.0); Mean Corpuscular Hgb Conc. 34.3 g/dL (32.0-36.0); Mean Corpuscular Volume 91.3 fL (80.0-100.0); Monocytes # (auto) 0.4 10 ^3/uL (0-1.3); Monocytes % (auto) 8.7 % (0.0-12.0); Neutrophils # (auto) 2.4 10 ^3/uL (1.6-8.6); Neutrophils % (auto) 54.5 % (37.0-80.0); Nucleated Red Blood Cells % 0.3 %; Platelet Count (auto) 253 10^3/uL (140-450); Red Blood Cells 3.89 10^6/uL (4.5-5.90); Red Cell Distribution Width 15.9 % (11.8-14.3); White Blood Cell 4.4 10^3/uL (4.4-10.8)
[2020-07-09 11:43] LABS: Albumin 2.9 g/dL (3.4-5.0); Calcium 8.5 mg/dL (8.5-10.1); Magnesium 2.1 mg/dL (1.6-2.6); Potassium 4.1 mmol/L (3.5-5.1)
[2020-07-09 11:48] LABS: BUN/Creatinine Ratio 15.5; Bilirubin, Total 0.2 mg/dL (0.2-1.0); Total Protein 7.7 g/dL (6.4-8.2)
[2020-07-09] MEDS ORDERED: HYDROmorphone HCL 2 MG/ML VL IV ONE ×2 (12:00→14:30)
[2020-07-09] MEDS ORDERED: PROMETHAZINE HCL 25 MG/ML 1ML IV ONE (12:00)
== END 2020-07-09 15:11 | disposition home or self-care (01) ==
LOC: ER 08:28
DX: G89.29 Other chronic pain (principal); M54.5 Low back pain; I10 Essential (primary) hypertension; M47.26 Other spondylosis with radiculopathy, lumbar region; E46 Unspecified protein-calorie malnutrition; I11.0 Hypertensive heart disease with heart failure; I50.9 Heart failure, unspecified; I25.2 Old myocardial infarction; Z68.30 Body mass index [BMI] 30.0-30.9, adult; Z86.73 Personal history of transient ischemic attack (TIA), and cerebral infarction without residual deficits; Z88.8 Allergy status to other drugs, medicaments and biological substances; Z79.899 Other long term (current) drug therapy
CPT/HCPCS: 36415; 72131; 80053; 81001; 83735; 85025; 96374; 96375; 96376; 99284; J1170; J1200; J2270; J2550; J3490

== ENCOUNTER 2020-07-11 00:47 | Emergency (ER) | payer MEDICARE, MEDICAID ==
[~2020-07-11] VITALS: Ht 182.9 cm; Wt 106.6 kg
[2020-07-11] MEDS ORDERED: diphenhdrAMINE HCL 50 MG/1 ML VL IM ONE (02:30)
[2020-07-11] MEDS ORDERED: HYDROmorphone HCL 2 MG/ML VL IM ONE (02:30)
[2020-07-11] MEDS ORDERED: methylPREDNISolone SOD SUCC 125 MG/2 ML VL IM ONE (06:00)
[2020-07-11 06:43] VITALS: BP 149/92
== END 2020-07-11 06:43 | disposition home or self-care (01) ==
LOC: EDBD 00:47 → EDUNIT# 00:47 → ER 00:50
DX: M79.10 Myalgia, unspecified site (principal); M47.26 Other spondylosis with radiculopathy, lumbar region; M25.551 Pain in right hip; I10 Essential (primary) hypertension; Z88.8 Allergy status to other drugs, medicaments and biological substances; Z79.899 Other long term (current) drug therapy
CPT/HCPCS: 93005

== ENCOUNTER 2022-03-24 00:22 | Emergency (ER) | payer MEDICARE, MEDICAID ==
[~2022-03-24] VITALS: Ht 190.5 cm; Wt 110.0 kg
[2022-03-24] MEDS ORDERED: HYDROmorphone HCL 2 MG/ML VL/or syr IM ONE ×2 (04:30→06:15)
[2022-03-24] MEDS ORDERED: diphenhdrAMINE HCL 50 MG/1 ML VL IM ONE (05:00)
[2022-03-24 07:11] VITALS: BP 155/85
== END 2022-03-24 07:08 | disposition home or self-care (01) ==
LOC: ER 00:22
DX: S33.5XXA Sprain of ligaments of lumbar spine, initial encounter (principal); M79.18 Myalgia, other site; I10 Essential (primary) hypertension; Z86.73 Personal history of transient ischemic attack (TIA), and cerebral infarction without residual deficits; X58.XXXA Exposure to other specified factors, initial encounter; Y93.89 Activity, other specified; Y92.89 Other specified places as the place of occurrence of the external cause; Y99.8 Other external cause status
CPT/HCPCS: 96372; 99284; J1170; J1200

== ENCOUNTER 2022-03-28 05:18 | Emergency (ER) | payer MEDICARE, MEDICAID ==
[~2022-03-28] VITALS: Ht 182.9 cm; Wt 109.0 kg
[2022-03-28 05:55] VITALS: BP 141/96
== END 2022-03-28 07:23 | disposition left against medical advice (07) ==
LOC: ER 05:18
DX: M54.50 Low back pain, unspecified (principal); Z53.21 Procedure and treatment not carried out due to patient leaving prior to being seen by health care provider

== ENCOUNTER 2022-03-29 20:38 | Emergency (ER) | payer MEDICARE, MEDICAID ==
[~2022-03-29] VITALS: Ht 182.9 cm; Wt 117.5 kg
[2022-03-29 23:39] LABS: Urine Bacteria NONE SEEN /hpf (None Seen); Urine Blood Negative /uL (Negative); Urine Hyaline Cast FEW /lpf (0 - 2); Urine Mucus FEW (None Seen); Urine Specific Gravity 1.026 (1.001-1.035); Urine WBC 1 /hpf (0 - 3)
[2022-03-30] MEDS ORDERED: HYDROmorphone HCL 2 MG/ML VL/or syr IM ONE (00:30)
[2022-03-30] MEDS ORDERED: diphenhdrAMINE HCL 50 MG/1 ML VL IM ONE (00:30)
[2022-03-30 00:46] VITALS: BP 127/88
[2022-03-31] MEDS ORDERED: DICL75TA2 PO (17:14)
== END 2022-03-30 01:35 | disposition home or self-care (01) ==
LOC: ER 20:38
DX: G89.29 Other chronic pain (principal); M54.50 Low back pain, unspecified; I10 Essential (primary) hypertension; Z86.73 Personal history of transient ischemic attack (TIA), and cerebral infarction without residual deficits; Z79.899 Other long term (current) drug therapy; Z88.8 Allergy status to other drugs, medicaments and biological substances
CPT/HCPCS: 81001; 96372; 99284; J1170; J1200

== ENCOUNTER 2022-03-31 13:24 | Emergency (ER) | payer MEDICARE, MEDICAID ==
[~2022-03-31] VITALS: Ht 198.1 cm; Wt 116.6 kg
[2022-03-31] MEDS ORDERED: DICL75TA2 PO (17:14)
[2022-03-31] MEDS ORDERED: HYDROmorphone HCL 2 MG/ML VL/or syr IM ONE (17:15)
[2022-03-31] MEDS ORDERED: diphenhdrAMINE HCL 50 MG/1 ML VL IM ONE (17:15)
[2022-03-31 18:42] VITALS: BP 131/89
== END 2022-03-31 21:32 | disposition home or self-care (01) ==
LOC: ER 13:24
DX: S33.5XXA Sprain of ligaments of lumbar spine, initial encounter (principal); I10 Essential (primary) hypertension; Z86.73 Personal history of transient ischemic attack (TIA), and cerebral infarction without residual deficits; Z88.6 Allergy status to analgesic agent; X58.XXXA Exposure to other specified factors, initial encounter; Y93.89 Activity, other specified; Y92.89 Other specified places as the place of occurrence of the external cause; Y99.8 Other external cause status
CPT/HCPCS: 96372; 99284; J1170; J1200

== ENCOUNTER 2022-04-01 18:35 | Emergency (ER) | payer MEDICARE, MEDICAID ==
[~2022-04-01] VITALS: Ht 182.9 cm; Wt 114.6 kg
[~2022-04-01 18:35] MED LIST changes: +DICL75TA2 PO
[2022-04-01] MEDS ORDERED: HYDROmorphone HCL 2 MG/ML VL/or syr IM ONE (23:15)
[2022-04-01] MEDS ORDERED: diphenhdrAMINE HCL 50 MG/1 ML VL IM ONE (23:15)
[2022-04-02 00:22] VITALS: BP 133/89
== END 2022-04-02 00:51 | disposition home or self-care (01) ==
LOC: ER 18:39
DX: G89.29 Other chronic pain (principal); M54.50 Low back pain, unspecified; I10 Essential (primary) hypertension; Z86.73 Personal history of transient ischemic attack (TIA), and cerebral infarction without residual deficits; Z79.899 Other long term (current) drug therapy; Z88.8 Allergy status to other drugs, medicaments and biological substances
CPT/HCPCS: 93005; 96372; 99284; J1170; J1200

== ENCOUNTER → 2022-04-10 | Emergency (ER) | payer MEDICARE, MEDICAID ==
[~2022-04-10] VITALS: Ht 182.9 cm; Wt 100.0 kg
[~2022-04-10] MED LIST changes: +HYDROcodone-ACET 10/325MG TAB PO ONE
[2022-04-10 04:46] VITALS: BP 155/111
== END | disposition left against medical advice (07) ==
LOC: ER 04:06
DX: M54.50 Low back pain, unspecified (principal); Z53.21 Procedure and treatment not carried out due to patient leaving prior to being seen by health care provider

== ENCOUNTER 2022-04-11 18:12 | Emergency (ER) | payer MEDICARE, MEDICAID ==
[~2022-04-11] VITALS: Ht 182.9 cm; Wt 100.0 kg
[~2022-04-11 18:12] MED LIST changes: -HYDROcodone-ACET 10/325MG TAB PO ONE
[2022-04-11] MEDS ORDERED: diphenhdrAMINE HCL 50 MG/1 ML VL IM ONE (21:15)
[2022-04-11] MEDS ORDERED: HYDROmorphone HCL 2 MG/ML VL/or syr IM ONE (21:15)
[2022-04-11 22:06] VITALS: BP 121/76
== END 2022-04-11 22:08 | disposition home or self-care (01) ==
LOC: ER 18:12
DX: G89.29 Other chronic pain (principal); M54.50 Low back pain, unspecified; I10 Essential (primary) hypertension; Z86.73 Personal history of transient ischemic attack (TIA), and cerebral infarction without residual deficits; Z79.899 Other long term (current) drug therapy; Z88.8 Allergy status to other drugs, medicaments and biological substances
CPT/HCPCS: 96372; 99284; J1170; J1200; J7030

== ENCOUNTER 2022-04-20 02:31 | Emergency (ER) | payer MEDICARE, MEDICAID ==
[~2022-04-20] VITALS: Ht 182.9 cm; Wt 113.8 kg
[2022-04-20] MEDS ORDERED: ONDANSETRON ODT 4 MG TAB PO ONE (05:15)
[2022-04-20] MEDS ORDERED: OXYCODONE W/ ACETAMINOPHEN 5/325MG TABLET PO ONE (05:15)
[2022-04-20 05:35] VITALS: BP 143/89
== END 2022-04-20 05:35 | disposition home or self-care (01) ==
LOC: ER 02:31
DX: G89.29 Other chronic pain (principal); M54.50 Low back pain, unspecified; I10 Essential (primary) hypertension; Z88.8 Allergy status to other drugs, medicaments and biological substances; Z79.899 Other long term (current) drug therapy; Z86.73 Personal history of transient ischemic attack (TIA), and cerebral infarction without residual deficits; Z98.890 Other specified postprocedural states
CPT/HCPCS: 99283; Q0162

== ENCOUNTER 2022-04-23 00:17 | Emergency (ER) | payer MEDICARE, MEDICAID ==
[~2022-04-23] VITALS: Ht 182.9 cm; Wt 100.0 kg
[2022-04-23 00:18] VITALS: BP 120/86
== END 2022-04-23 02:56 | disposition left against medical advice (07) ==
LOC: ER 00:17
DX: M54.50 Low back pain, unspecified (principal); Z53.21 Procedure and treatment not carried out due to patient leaving prior to being seen by health care provider

== ENCOUNTER 2022-05-01 11:56 | Emergency (ER) | payer MEDICARE, MEDICAID ==
[~2022-05-01] VITALS: Ht 188 cm; Wt 114.0 kg
[2022-05-01] MEDS ORDERED: diphenhdrAMINE HCL 25 MG CAP PO ONE (15:30)
[2022-05-01] MEDS ORDERED: HYDROmorphone HCL 2 MG/ML VL/or syr IM ONE (15:30)
[2022-05-01 16:52] VITALS: BP 153/108
== END 2022-05-01 16:57 | disposition home or self-care (01) ==
LOC: ER 11:56
DX: M47.816 Spondylosis without myelopathy or radiculopathy, lumbar region (principal); G89.29 Other chronic pain; M54.50 Low back pain, unspecified; I10 Essential (primary) hypertension; Z86.73 Personal history of transient ischemic attack (TIA), and cerebral infarction without residual deficits; Z79.899 Other long term (current) drug therapy; Z88.8 Allergy status to other drugs, medicaments and biological substances
CPT/HCPCS: 96372; 99283; J1170

== ENCOUNTER 2022-05-02 20:06 | Emergency (ER) | payer MEDICARE, MEDICAID ==
[~2022-05-02] VITALS: Ht 182.9 cm; Wt 112.0 kg
[2022-05-02] MEDS ORDERED: HYDROmorphone HCL 2 MG/ML VL/or syr IM ONE (21:00)
[2022-05-02] MEDS ORDERED: diphenhdrAMINE HCL 25 MG CAP PO ONE (21:00)
[2022-05-02 21:20] VITALS: BP 185/125
== END 2022-05-02 23:20 | disposition home or self-care (01) ==
LOC: ER 20:06
DX: G89.29 Other chronic pain (principal); M54.59 Other low back pain; M47.896 Other spondylosis, lumbar region; I10 Essential (primary) hypertension; Z88.8 Allergy status to other drugs, medicaments and biological substances; Z86.73 Personal history of transient ischemic attack (TIA), and cerebral infarction without residual deficits; Z79.899 Other long term (current) drug therapy
CPT/HCPCS: 96372; 99283; J1170

== ENCOUNTER 2022-05-11 01:42 | Emergency (ER) | payer MEDICARE, MEDICAID ==
[~2022-05-11] VITALS: Ht 182.9 cm; Wt 113.5 kg
[2022-05-11 04:24] VITALS: BP 142/86
[2022-05-11] MEDS ORDERED: HYDROcodone-ACET 10/325MG TAB PO ONE (05:00)
== END 2022-05-11 05:05 | disposition home or self-care (01) ==
LOC: ER 01:42
DX: G89.29 Other chronic pain (principal); M54.50 Low back pain, unspecified; I10 Essential (primary) hypertension; Z86.73 Personal history of transient ischemic attack (TIA), and cerebral infarction without residual deficits; Z88.6 Allergy status to analgesic agent

== ENCOUNTER 2022-05-13 14:06 | Emergency (ER) | payer MEDICARE, MEDICAID ==
[~2022-05-13] VITALS: Ht 182.9 cm; Wt 113.0 kg
[2022-05-13] MEDS ORDERED: diphenhdrAMINE HCL 25 MG CAP PO ONE (15:00)
[2022-05-13] MEDS ORDERED: HYDROmorphone HCL 2 MG/ML VL/or syr IM ONE (15:00)
[2022-05-13 18:09] VITALS: BP 136/97
== END 2022-05-13 21:00 | disposition home or self-care (01) ==
LOC: ER 14:06
DX: M47.896 Other spondylosis, lumbar region (principal); I10 Essential (primary) hypertension; Z86.73 Personal history of transient ischemic attack (TIA), and cerebral infarction without residual deficits; Z79.899 Other long term (current) drug therapy; Z88.8 Allergy status to other drugs, medicaments and biological substances
CPT/HCPCS: 96372; 99283; J1170

== ENCOUNTER 2022-05-18 07:57 | Emergency (ER) | payer MEDICARE, MEDICAID ==
[~2022-05-18] VITALS: Ht 182.9 cm; Wt 114.4 kg
[2022-05-18 08:05] VITALS: BP 166/92
== END 2022-05-18 10:35 | disposition left against medical advice (07) ==
LOC: ER 07:57
DX: M54.9 Dorsalgia, unspecified (principal); R94.31 Abnormal electrocardiogram [ECG] [EKG]; Z53.21 Procedure and treatment not carried out due to patient leaving prior to being seen by health care provider
CPT/HCPCS: 93005

== ENCOUNTER 2022-06-11 06:17 | Emergency (ER) | payer MEDICARE, MEDICAID ==
[~2022-06-11] VITALS: Ht 182.9 cm; Wt 113.6 kg
[2022-06-11] MEDS ORDERED: ONDANSETRON ODT 4 MG TAB PO ONE (08:45)
[2022-06-11] MEDS ORDERED: diphenhdrAMINE HCL 50 MG/1 ML VL IM ONE (08:45)
[2022-06-11] MEDS ORDERED: MORPHINE SULFATE 4 MG/ML SYR/VIAL IM ONE (08:45)
[2022-06-11] MEDS ORDERED: HYDROcodone-ACET 10/325MG TAB PO ONE (10:00)
[2022-06-11] MEDS ORDERED: CYCL-839 PO (10:11)
[2022-06-11 10:21] VITALS: BP 148/103
== END 2022-06-11 10:23 | disposition home or self-care (01) ==
LOC: ER 06:17
DX: M54.50 Low back pain, unspecified (principal); G89.29 Other chronic pain; I10 Essential (primary) hypertension; Z86.73 Personal history of transient ischemic attack (TIA), and cerebral infarction without residual deficits; Z88.6 Allergy status to analgesic agent
CPT/HCPCS: 96372; 99284; J1200; J2270; Q0162

== ENCOUNTER 2022-06-11 20:59 | Emergency (ER) | payer MEDICARE, MEDICAID ==
[~2022-06-11] VITALS: Ht 182.9 cm; Wt 113.0 kg
[~2022-06-11 20:59] MED LIST changes: +CYCL-839 PO
[2022-06-12] MEDS ORDERED: diphenhdrAMINE HCL 50 MG/1 ML VL IM ONE (03:15)
[2022-06-12] MEDS ORDERED: HYDROmorphone HCL 2 MG/ML VL/or syr IM ONE (03:15)
[2022-06-12 06:30] VITALS: BP 168/98
== END 2022-06-12 06:37 | disposition home or self-care (01) ==
LOC: ER 20:59
DX: G89.29 Other chronic pain (principal); M54.50 Low back pain, unspecified; I10 Essential (primary) hypertension; Z86.73 Personal history of transient ischemic attack (TIA), and cerebral infarction without residual deficits; Z88.6 Allergy status to analgesic agent
CPT/HCPCS: 96372; 99284; J1170; J1200

== ENCOUNTER 2022-06-14 09:12 | Emergency (ER) | payer MEDICARE, MEDICAID ==
[~2022-06-14] VITALS: Ht 182.9 cm; Wt 113.0 kg
[2022-06-14] MEDS ORDERED: methylPREDNISolone SOD SUCC 125 MG/2 ML VL IM ONE (10:15)
[2022-06-14] MEDS ORDERED: PROMETHAZINE HCL 25 MG/ML 1ML IM ONE (10:15)
[2022-06-14] MEDS ORDERED: HYDROmorphone HCL 2 MG/ML VL/or syr IM ONE (10:15)
[2022-06-14 11:10] VITALS: BP 160/90
== END 2022-06-14 11:21 | disposition home or self-care (01) ==
LOC: ER 09:12
DX: G89.29 Other chronic pain (principal); M54.50 Low back pain, unspecified; F11.20 Opioid dependence, uncomplicated; I10 Essential (primary) hypertension; Z86.73 Personal history of transient ischemic attack (TIA), and cerebral infarction without residual deficits; Z79.899 Other long term (current) drug therapy; Z88.8 Allergy status to other drugs, medicaments and biological substances
CPT/HCPCS: 96372; 99284; J1170; J2550; J2930

== ENCOUNTER 2022-06-16 17:51 | Emergency (ER) | payer MEDICARE, MEDICAID ==
[~2022-06-16] VITALS: Ht 182.9 cm; Wt 108.0 kg
[2022-06-16 18:04] VITALS: BP 146/93
[2022-06-16] MEDS ORDERED: diphenhdrAMINE HCL 50 MG/1 ML VL IM ONE (18:30)
[2022-06-16] MEDS ORDERED: HYDROmorphone HCL 2 MG/ML VL/or syr IM ONE (18:30)
[2022-06-16] MEDS ORDERED: PREG200C59 PO (19:19)
== END 2022-06-16 20:19 | disposition home or self-care (01) ==
LOC: ER 17:51
DX: M54.16 Radiculopathy, lumbar region (principal); F11.20 Opioid dependence, uncomplicated; I10 Essential (primary) hypertension; Z86.73 Personal history of transient ischemic attack (TIA), and cerebral infarction without residual deficits; Z88.8 Allergy status to other drugs, medicaments and biological substances
CPT/HCPCS: 99281; J1170; J1200

== ENCOUNTER → 2022-06-19 | Emergency (ER) | payer MEDICARE, MEDICAID ==
[~2022-06-19] VITALS: Ht 182.9 cm; Wt 109.3 kg
[~2022-06-19] MED LIST changes: +PREG200C59 PO
[2022-06-19 07:15] VITALS: BP 138/73
== END | disposition left against medical advice (07) ==
LOC: ER 07:00
DX: M54.9 Dorsalgia, unspecified (principal); Z53.21 Procedure and treatment not carried out due to patient leaving prior to being seen by health care provider

== ENCOUNTER 2022-06-29 11:12 | Emergency (ER) | payer MEDICARE, MEDICAID ==
[~2022-06-29] VITALS: Ht 182.9 cm; Wt 109.0 kg
[2022-06-29] MEDS ORDERED: PROMETHAZINE HCL 25 MG/ML 1ML IM ONE (11:45)
[2022-06-29] MEDS ORDERED: HYDROmorphone HCL 2 MG/ML VL/or syr IM ONE (11:45)
[2022-06-29] MEDS ORDERED: diphenhdrAMINE HCL 50 MG/1 ML VL IM ONE (11:45)
[2022-06-29 12:22] VITALS: BP 104/70
== END 2022-06-29 12:29 | disposition home or self-care (01) ==
LOC: ER 11:12
DX: G89.29 Other chronic pain (principal); M54.50 Low back pain, unspecified; F11.20 Opioid dependence, uncomplicated; I10 Essential (primary) hypertension; Z86.73 Personal history of transient ischemic attack (TIA), and cerebral infarction without residual deficits; Z88.6 Allergy status to analgesic agent
CPT/HCPCS: 96372; 99284; J1170; J1200; J2550

== ENCOUNTER 2022-07-01 04:21 | Emergency (ER) | payer MEDICARE, MEDICAID ==
[~2022-07-01] VITALS: Ht 182.9 cm; Wt 113.0 kg
[2022-07-01 05:08] VITALS: BP 118/73
[2022-07-01] MEDS ORDERED: methylPREDNISolone SOD SUCC 125 MG/2 ML VL IM ONE (05:30)
[2022-07-01] MEDS ORDERED: ACETAMINOPHEN 325 MG TAB PO ONE (05:30)
== END 2022-07-01 06:56 | disposition home or self-care (01) ==
LOC: ER 04:21
DX: G89.29 Other chronic pain (principal); M54.50 Low back pain, unspecified; I10 Essential (primary) hypertension; Z76.5 Malingerer [conscious simulation]; Z86.73 Personal history of transient ischemic attack (TIA), and cerebral infarction without residual deficits; Z88.6 Allergy status to analgesic agent
CPT/HCPCS: 96372; 99283; J2930

== ENCOUNTER 2022-07-02 11:23 | Emergency (ER) | payer MEDICARE, MEDICAID ==
[~2022-07-02] VITALS: Ht 182.9 cm; Wt 109.0 kg
[2022-07-02 12:15] VITALS: BP 160/111
[2022-07-02] MEDS ORDERED: DexAMETHasone SOD PHOS 10MG/1ML VIAL INJ IM ONE (12:15)
[2022-07-02] MEDS ORDERED: MORPHINE SULFATE INJ 2 MG/ml SYRG IM ONE (12:15)
== END 2022-07-02 12:15 | disposition home or self-care (01) ==
LOC: ER 11:23
DX: G89.29 Other chronic pain (principal); M54.59 Other low back pain; I10 Essential (primary) hypertension; Z76.5 Malingerer [conscious simulation]; Z86.73 Personal history of transient ischemic attack (TIA), and cerebral infarction without residual deficits; Z86.718 Personal history of other venous thrombosis and embolism; Z86.711 Personal history of pulmonary embolism; Z88.8 Allergy status to other drugs, medicaments and biological substances
CPT/HCPCS: 96372; 99284; J1100; J2270

== ENCOUNTER 2022-07-02 18:07 | Emergency (ER) | payer MEDICARE, MEDICAID ==
[~2022-07-02] VITALS: Ht 180.3 cm; Wt 106.8 kg
[2022-07-02 18:29] VITALS: BP 172/115
[2022-07-02] MEDS ORDERED: ACETAMINOPHEN 325 MG TAB PO ONE (18:45)
== END 2022-07-02 18:34 | disposition home or self-care (01) ==
LOC: ER 18:07
DX: G89.29 Other chronic pain (principal); M54.50 Low back pain, unspecified; Z76.5 Malingerer [conscious simulation]; I10 Essential (primary) hypertension; Z86.73 Personal history of transient ischemic attack (TIA), and cerebral infarction without residual deficits; Z79.899 Other long term (current) drug therapy; Z88.8 Allergy status to other drugs, medicaments and biological substances

== ENCOUNTER 2022-07-15 12:32 | Emergency (ER) | payer MEDICARE, MEDICAID | END 2022-07-15 12:46 | disposition left against medical advice (07) | LOC: ER 12:32 | DX: M54.9 Dorsalgia, unspecified (principal); Z53.21 Procedure and treatment not carried out due to patient leaving prior to being seen by health care provider ==

== ENCOUNTER 2022-07-16 22:22 | Emergency (ER) | payer MEDICARE, MEDICAID ==
[~2022-07-16] VITALS: Ht 182.9 cm; Wt 109.0 kg
[2022-07-16 22:39] VITALS: BP 162/100
== END 2022-07-16 22:45 | disposition left against medical advice (07) ==
LOC: ER 22:25
DX: G89.29 Other chronic pain (principal); M54.50 Low back pain, unspecified; Z76.5 Malingerer [conscious simulation]; I10 Essential (primary) hypertension; Z86.73 Personal history of transient ischemic attack (TIA), and cerebral infarction without residual deficits; Z79.899 Other long term (current) drug therapy; Z88.8 Allergy status to other drugs, medicaments and biological substances

== ENCOUNTER 2022-09-22 16:13 | Emergency (ER) | payer MEDICARE, MEDICAID ==
[~2022-09-22] VITALS: Ht 182.9 cm; Wt 104.0 kg
[~2022-09-22 16:13] MED LIST changes: -LOSA-39 PO; +LOSA100T58 PO
[2022-09-22] MEDS ORDERED: diphenhdrAMINE HCL 50 MG/1 ML VL IV ONE (16:45)
[2022-09-22] MEDS ORDERED: HYDROmorphone HCL 2 MG/ML VL/or syr IM ONE (16:45)
[2022-09-22] MEDS ORDERED: diphenhdrAMINE HCL 50 MG/1 ML VL IM ONE (17:45)
[2022-09-22 18:12] VITALS: BP 137/85; PULSE 95; RESP 17; TEMP 98; O2SAT 95
== END 2022-09-22 18:13 | disposition home or self-care (01) ==
LOC: ER 16:13
DX: G89.29 Other chronic pain (principal); M54.50 Low back pain, unspecified; G35 Multiple sclerosis; I10 Essential (primary) hypertension; I25.10 Atherosclerotic heart disease of native coronary artery without angina pectoris; Z98.890 Other specified postprocedural states; Z88.8 Allergy status to other drugs, medicaments and biological substances; Z79.899 Other long term (current) drug therapy
CPT/HCPCS: 96372; 99284; J1170; J1200

== ENCOUNTER 2022-09-23 15:10 | Emergency (ER) | payer MEDICARE, MEDICAID ==
[2022-09-23] MEDS ORDERED: HYDROmorphone HCL 2 MG/ML VL/or syr IM ONE (15:45)
[2022-09-23] MEDS ORDERED: diphenhdrAMINE HCL 50 MG/1 ML VL IM ONE ×2 (15:45→18:15)
[2022-09-23 18:09] VITALS: O2SAT 99
[2022-09-23 18:31] VITALS: BP 156/100; PULSE 87; RESP 16
== END 2022-09-23 18:31 | disposition home or self-care (01) ==
LOC: ER 15:10
DX: M47.26 Other spondylosis with radiculopathy, lumbar region (principal); M79.18 Myalgia, other site; I10 Essential (primary) hypertension; Z86.73 Personal history of transient ischemic attack (TIA), and cerebral infarction without residual deficits; Z88.6 Allergy status to analgesic agent
CPT/HCPCS: 96372; 99284; J1170; J1200

== ENCOUNTER 2022-10-04 11:00 | Emergency (ER) | payer MEDICARE, MEDICAID ==
[~2022-10-04] VITALS: Ht 182.9 cm; Wt 106.5 kg
[2022-10-04] MEDS ORDERED: HYDROmorphone HCL 2 MG/ML VL/or syr IM ONE (14:00)
[2022-10-04] MEDS ORDERED: diphenhdrAMINE HCL 50 MG/1 ML VL IM ONE (14:00)
[2022-10-04] MEDS ORDERED: PROMETHAZINE HCL 25 MG/ML 1ML IM ONE (14:00)
[2022-10-04 14:46] VITALS: BP 164/94; PULSE 103; RESP 18; TEMP 97.8; O2SAT 99
== END 2022-10-04 14:56 | disposition home or self-care (01) ==
LOC: ER 11:00
DX: G89.29 Other chronic pain (principal); M54.50 Low back pain, unspecified; I10 Essential (primary) hypertension; Z76.5 Malingerer [conscious simulation]; Z86.73 Personal history of transient ischemic attack (TIA), and cerebral infarction without residual deficits; Z88.6 Allergy status to analgesic agent
CPT/HCPCS: 96372; 99284; J1170; J1200; J2550

== ENCOUNTER 2022-10-18 14:58 | Emergency (ER) | payer MEDICARE, MEDICAID ==
[~2022-10-18] VITALS: Ht 182.9 cm; Wt 104.5 kg
[2022-10-18] MEDS ORDERED: PROMETHAZINE HCL 25 MG/ML 1ML IM ONE (17:30)
[2022-10-18] MEDS ORDERED: HYDROmorphone HCL 2 MG/ML VL/or syr IM ONE (17:30)
[2022-10-18 17:33] VITALS: BP 120/94; PULSE 86; RESP 22; TEMP 98.1; O2SAT 96
[2022-10-18] MEDS ORDERED: diphenhdrAMINE HCL 50 MG/1 ML VL IM ONE ×2 (17:45)
== END 2022-10-18 17:59 | disposition home or self-care (01) ==
LOC: EDBD 14:58 → ER 14:58
DX: G89.29 Other chronic pain (principal); M54.50 Low back pain, unspecified; F11.20 Opioid dependence, uncomplicated; I10 Essential (primary) hypertension; Z86.73 Personal history of transient ischemic attack (TIA), and cerebral infarction without residual deficits; Z79.899 Other long term (current) drug therapy; Z88.8 Allergy status to other drugs, medicaments and biological substances
CPT/HCPCS: 96372; 99284; J1170; J1200; J2550

== ENCOUNTER 2022-10-22 09:37 | Emergency (ER) | payer MEDICARE, MEDICAID ==
[~2022-10-22] VITALS: Ht 182.9 cm; Wt 104.5 kg
[2022-10-22] MEDS ORDERED: HYDROmorphone HCL 2 MG/ML VL/or syr IM ONE (12:00)
[2022-10-22] MEDS ORDERED: diphenhdrAMINE HCL 25 MG CAP PO ONE (12:00)
[2022-10-22 13:55] VITALS: BP 146/99; PULSE 86; RESP 17; TEMP 98.6; O2SAT 95
== END 2022-10-22 13:26 | disposition home or self-care (01) ==
LOC: EDBD 09:37 → ER 09:37
DX: M47.896 Other spondylosis, lumbar region (principal); G89.29 Other chronic pain; M54.89 Other dorsalgia; I10 Essential (primary) hypertension; Z88.8 Allergy status to other drugs, medicaments and biological substances; Z79.899 Other long term (current) drug therapy; Z86.73 Personal history of transient ischemic attack (TIA), and cerebral infarction without residual deficits
CPT/HCPCS: 96372; 99283; J1170

== ENCOUNTER 2022-11-07 21:00 | Emergency (ER) | payer MEDICARE, MEDICAID ==
[~2022-11-07] VITALS: Ht 182.9 cm; Wt 107.0 kg
[2022-11-07 22:00] VITALS: TEMP 97.9
[2022-11-07] MEDS ORDERED: diphenhdrAMINE HCL 50 MG/1 ML VL IM ONE (22:00)
[2022-11-07] MEDS ORDERED: HYDROmorphone HCL 2 MG/ML VL/or syr IM ONE (22:00)
[2022-11-07] MEDS ORDERED: cloNIDine HCL 0.1 MG TAB PO ONE (23:30)
[2022-11-08 00:15] VITALS: BP 161/121; PULSE 97; RESP 18; O2SAT 98
== END 2022-11-08 00:18 | disposition home or self-care (01) ==
LOC: ER 21:00
DX: G89.29 Other chronic pain (principal); M54.50 Low back pain, unspecified; G35 Multiple sclerosis; I10 Essential (primary) hypertension; Z86.73 Personal history of transient ischemic attack (TIA), and cerebral infarction without residual deficits; Z79.899 Other long term (current) drug therapy; Z88.8 Allergy status to other drugs, medicaments and biological substances
CPT/HCPCS: 93005; 96372; 99284; J1170; J1200

== ENCOUNTER 2023-01-02 16:55 | Emergency (ER) | payer MEDICARE, MEDICAID ==
[~2023-01-02] VITALS: Ht 182.9 cm; Wt 110.3 kg
[2023-01-02 16:56] VITALS: BP 135/92; PULSE 91; RESP 18; O2SAT 96
== END 2023-01-02 22:05 | disposition left against medical advice (07) ==
LOC: ER 16:55
DX: M54.50 Low back pain, unspecified (principal); Z53.21 Procedure and treatment not carried out due to patient leaving prior to being seen by health care provider

== ENCOUNTER 2023-01-08 12:47 | Emergency (ER) | payer MEDICARE, MEDICAID ==
[~2023-01-08] VITALS: Ht 182.9 cm; Wt 105.3 kg
[2023-01-08] MEDS ORDERED: HYDROmorphone HCL 2 MG/ML VL/or syr IM ONE (16:30)
[2023-01-08] MEDS ORDERED: diphenhdrAMINE HCL 25 MG CAP PO ONE (16:30)
[2023-01-08 17:13] VITALS: TEMP 97.6; O2SAT 97
[2023-01-08 17:15] VITALS: BP 113/67; PULSE 67; RESP 16
== END 2023-01-08 17:19 | disposition home or self-care (01) ==
LOC: ER 12:47
DX: G89.29 Other chronic pain (principal); M54.50 Low back pain, unspecified; I10 Essential (primary) hypertension; Z86.73 Personal history of transient ischemic attack (TIA), and cerebral infarction without residual deficits; Z79.899 Other long term (current) drug therapy; Z88.8 Allergy status to other drugs, medicaments and biological substances
CPT/HCPCS: 96372; 99283; J1170

== ENCOUNTER 2023-01-14 02:27 | Emergency (ER) | payer MEDICARE, MEDICAID ==
[~2023-01-14] VITALS: Ht 182.9 cm; Wt 103.0 kg
[2023-01-14 03:16] LABS: Basophils # (auto) 0 10 ^3/uL (0-0.2); Basophils % (auto) 0.5 % (0.0-2.0); Eosinophils # (auto) 0.1 10 ^3/uL (0-0.8); Hematocrit 46.9 % (41.0-53.0); Hemoglobin 15.6 g/dL (13.5-17.5); Lymphocytes # (auto) 2.9 10 ^3/uL (0.4-5.4); Lymphocytes % (auto) 32.2 % (10.0-50.0); Mean Corpuscular Hemoglobin 28.8 pg (28.0-32.0); Mean Corpuscular Hgb Conc. 33.3 g/dL (32.0-36.0); Mean Corpuscular Volume 86.6 fL (80.0-100.0); Monocytes # (auto) 0.6 10 ^3/uL (0-1.3); Neutrophils # (auto) 5.3 10 ^3/uL (1.6-8.6); Neutrophils % (auto) 59.3 % (37.0-80.0); Nucleated Red Blood Cells % 0.1 %; Red Blood Cells 5.41 10^6/uL (4.5-5.90); Red Cell Distribution Width 16.6 % (11.8-14.3); White Blood Cell 8.9 10^3/uL (4.4-10.8)
[2023-01-14 03:18] LABS: Alanine Aminotransferase 17 U/L (7-40); Alkaline Phosphatase 161 U/L (46-116); Anion Gap 12 (5-15); Aspartate Aminotransferase 16 U/L (13-40); BUN/Creatinine Ratio 9.8 (10.0-20.0); Blood Urea Nitrogen 13 mg/dL (9-23); Calcium 9.4 mg/dL (8.7-10.4); Carbon Dioxide 19 mmol/L (20-30); Chloride 105 mmol/L (98-107); Glucose 137 mg/dL (74-106); Potassium 3.7 mmol/L (3.5-5.1); Sodium 136 mmol/L (136-145)
[2023-01-14 03:19] LABS: Bilirubin, Total 0.4 mg/dL (0.2-1.0)
[2023-01-14 03:30] LABS: INR 1.04 (0.9-1.15); Partial Thromboplastin Time 30.5 SEC (24.5-34.5); Prothrombin Time 10.9 sec (9.3-11.8)
[2023-01-14 06:42] VITALS: PULSE 115; RESP 20; TEMP 98.2; O2SAT 98
[2023-01-14] MEDS ORDERED: diphenhdrAMINE HCL 50 MG/1 ML VL IM ONE (06:45)
[2023-01-14] MEDS ORDERED: ONDANSETRON ODT 4 MG TAB PO ONE (06:45)
[2023-01-14] MEDS ORDERED: HYDROmorphone HCL 2 MG/ML VL/or syr IM ONE (06:45)
[2023-01-14 06:47] VITALS: BP 139/91; PULSE 115; RESP 20
== END 2023-01-14 07:05 | disposition home or self-care (01) ==
LOC: ER 02:27
DX: S33.5XXA Sprain of ligaments of lumbar spine, initial encounter (principal); M54.16 Radiculopathy, lumbar region; M79.10 Myalgia, unspecified site; I10 Essential (primary) hypertension; Z86.73 Personal history of transient ischemic attack (TIA), and cerebral infarction without residual deficits; Z79.899 Other long term (current) drug therapy; Z88.8 Allergy status to other drugs, medicaments and biological substances; X58.XXXA Exposure to other specified factors, initial encounter; Y93.89 Activity, other specified; Y92.89 Other specified places as the place of occurrence of the external cause; Y99.8 Other external cause status
CPT/HCPCS: 36415; 71045; 80053; 83735; 83880; 84484; 85025; 85610; 85730; 93005; 96372; 99285; J1170; J1200; Q0162